=== PATIENT | female | born 1980 | race American Indian/Alaskan Native ===

== ENCOUNTER 2025-02-11 14:56 | Outpatient (CLI) | payer MEDICAID ==
--- NOTE | 2025-02-11 15:51 | RADIOLOGY REPORT ---
EXAM: MR MRI LUMBAR SPINE CLINICAL HISTORY: LUMBAGO WITH SCIATICA, RIGHT, LOW BACK PAIN COMPARISON: None TECHNIQUE: MRI of the lumbar spine was performed without contrast. FINDINGS: L4-S1 posterior spinal fusion. Vertebral body height is maintained. Vertebral alignment is anatomic. Degenerative endplate changes. The conus medullaris is normal in position and signal intensity. L1-L2: Disc bulge with facet arthropathy and ligamentum flavum thickening. No significant spinal canal or foraminal stenosis. L2-L3: Disc bulge with facet arthropathy and ligamentum flavum thickening. No significant spinal canal or foraminal stenosis. L3-L4: Disc bulge with facet arthropathy. No significant spinal canal or foraminal stenosis. L4-L5: Status post fusion. No significant spinal canal or foraminal stenosis. L5-S1: Status post fusion. [id number] bilateral foraminal stenosis.No significant spinal canal narrowing. Paraspinal edema in the lower lumbar spine region. IMPRESSION: Status post L4-S1 posterior spinal fusion. No significant spinal canal stenosis. [id number] bilateral foraminal stenosis at L5-S
== END 2025-02-11 23:59 | disposition home or self-care (01) ==
LOC: MRI02 14:56
PROVIDERS: ATTEND Registered Nurse
DX: M51.16 Intervertebral disc disorders with radiculopathy, lumbar region (principal); M48.07 Spinal stenosis, lumbosacral region; R60.9 Edema, unspecified; M47.816 Spondylosis without myelopathy or radiculopathy, lumbar region; M43.27 Fusion of spine, lumbosacral region
CPT/HCPCS: 72148